=== PATIENT | female | born 1975 | race African-American/Black ===

== ENCOUNTER 2023-05-07 10:43 | Emergency (ER) | payer OTHER ==
[~2023-05-07] VITALS: Ht 162.6 cm; Wt 63.0 kg
[2023-05-07] MEDS ORDERED: OMEPRAZOLE 20MG CAPSULE EXTENDED RELEASE PO ONE (11:00)
[2023-05-07 11:31] VITALS: TEMP 98.1; O2SAT 100
[2023-05-07 12:36] LABS: BASOPHILS % 1.1 % (0.0-2.0); DIFFERENTIAL COMMENT 0; EOSINOPHILS % 0.9 % (0.0-5.0); HEMATOCRIT. 43.8 % (36.0-48.0); HEMOGLOBIN. 14.3 g/dL (12.0-16.0); LYMPHOCYTES % 41.4 % (20.0-50.0); MEAN CORPUSCULAR HEMOGLOBIN 33.5 pg (28.0-32.0); MEAN CORPUSCULAR HGB CONC 32.6 g/dL (31.0-37.0); MEAN PLATELET VOLUME 9.8 fl (7.4-10.4); MONOCYTES % 7.4 % (2.0-8.0); NEUTROPHILS % 49.2 % (40.0-76.0); PLATELET 210 x1000/uL (130-400); RED BLOOD CELL COUNT 4.25 mill/uL (4.2-5.4); RED CELL DISTRIBUTION WIDTH 15.1 % (11.6-14.6)
[2023-05-07 13:04] LABS: PROTHROMBIN TIME 10.6 sec (9.6-11.0)
[2023-05-07 13:06] LABS: ALANINE AMINOTRANSFERASE 9 IU/L (10-49); ASPARTATE AMINOTRANSFERASE 14 IU/L (<34); BILIRUBIN TOTAL 0.6 mg/dL (0.1-1.0); CALCIUM 9.9 mg/dL (8.7-10.4); CARBON DIOXIDE 29 mEq/L (21-32); CHLORIDE 99 mEq/L (98-107); CREATININE 0.8 mg/dL (0.6-1.0); GLUCOSE 97 mg/dL (70-105); POTASSIUM 3.8 mEq/L (3.5-5.1); PROTEIN TOTAL 8.5 g/dL (6.0-8.3); SODIUM 136 mEq/L (136-145); UREA NITROGEN BLOOD 16 mg/dL (9-23)
[2023-05-07 13:14] LABS: HCG SCREEN NEGATIVE
[2023-05-07] MEDS ORDERED: AMOX1TAB16 MT (13:48)
[2023-05-07 13:58] VITALS: BP 162/101; PULSE 82; RESP 20
== END 2023-05-07 13:59 | disposition home or self-care (01) ==
LOC: ER 10:56
DX: K57.92 Diverticulitis of intestine, part unspecified, without perforation or abscess without bleeding (principal); Z98.890 Other specified postprocedural states
CPT/HCPCS: 36415; 74176; 80053; 84703; 85025; 86850; 86900; 99284

== ENCOUNTER 2025-01-29 08:52 | Emergency (ER) | payer OTHER ==
[~2025-01-29] VITALS: Ht 162.6 cm; Wt 58.0 kg
[~2025-01-29 08:52] MED LIST: AMLO10TA80 PO; CIPR500S3 PO; HYDR50TA40 MT; METR-167 MT
[2025-01-29 09:21] VITALS: O2SAT 100
[2025-01-29 10:02] VITALS: BP 167/111; PULSE 94; RESP 18; TEMP 37.1; O2SAT 100
== END 2025-01-29 10:05 | disposition home or self-care (01) ==
LOC: ER 08:52
DX: R59.1 Generalized enlarged lymph nodes (principal); F12.90 Cannabis use, unspecified, uncomplicated; Z98.890 Other specified postprocedural states; Z79.899 Other long term (current) drug therapy
CPT/HCPCS: 99282